=== PATIENT | male | born 1970 | race Caucasian/White ===

== ENCOUNTER → 2021-10-22 15:27 | Outpatient (BNVA) | payer MEDICARE, SELFPAY | PROVIDERS: Visit Provider Surgery | DX: Z12.11 Encounter for screening for malignant neoplasm of colon (principal) | CPT/HCPCS: 99024 ==

== ENCOUNTER 2022-01-05 05:46 | Day surgery (SDC) | payer MEDICARE, MEDICAID, SELFPAY ==
[2022-01-03 08:42] VITALS: BMI 48.7
[2022-01-05 06:20] VITALS: BP 160/112; PULSE 96; RESP 18; TEMP 36.4; O2SAT 94
[2022-01-05] MEDS: sodium chloride 0.9% 1,000 ML 30 ML IV (06:34)
--- NOTE | 2022-01-05 06:57 | ANES.PREANE2 ---
Pre-Anesthetic Assessment Height/Weight: Height 1.88 m Weight 172.365 kg Temp Pulse Resp BP Pulse Ox O2 Del Method 97.6 F 96 18 160/112 94 01/05/22 06:20 01/05/22 06:20 01/05/22 06:20 01/05/22 06:20 01/05/22 06:20 01/05/22 06:20 Preop Diagnosis: screening Operation Date: 01/05/22 07:00 Proposed Procedures p Colonoscopy 78287,Z12.11(Not Applicable) - Alvarez Tatum, DO Was Beta Alley taken within 24 hours: N/A Was Clonidine taken within 24 hours: N/A Last intake: Intake Last Liquid Date 01/04/22 Last Liquid Time 22:00 Last Solid Date 01/03/22 Last Solid Time 19:00 Social Alcohol and Tobacco Exam alert, oriented x 3, clear to auscultation bilaterally and regular rate & rhythm Airway Submandibular: within normal limits Cervical ROM: within normal limits Mallampati: Class II Dentition: full History/ROS No significant history except as noted and No significant complaints Pulmonary Exertional Dyspnea CV/HEM None reported None reported Hepatic None reported GI Gastroesophageal Reflux Disease Metabolic Diabetes Mellitus and Morbid Obesity [facility] [place] Osteoarthritis/DJD Neuropsych None reported narcolepsy Anesthetic Plan ASA status: 3 Anesthesia: Anesthesia Evaluation and MAC Risk of > 500 ml blood loss (7ml/kg in children): No Medications/Allergies Home Medications Medication Instructions Recorded Confirmed Last Taken Type armodafinil 250 mg tablet (Nuvigil) 250 mg PO DAILY 10/22/21 01/05/22 01/03/22 History dextroamphetamine-amphetamine 10 10 mg PO BID 10/22/21 01/05/22 01/05/22 History mg tablet (Adderall) dextroamphetamine-amphetamine ER 20 mg PO BID 10/22/21 01/05/22 01/05/22 History 20 mg 24hr capsule,extend release (Adderall XR) metformin 850 mg tablet 850 mg PO BID 10/22/21 01/05/22 01/03/22 History semaglutide 2 mg/dose (8 mg/3 mL) 1 mg SUBCUT .1 week 10/22/21 01/05/22 1 Week Ago History subcutaneous pen injector (Ozempic) ~12/29/21 venlafaxine 37.5 mg 37.5 mg PO DAILY 10/22/21 01/05/22 01/05/22 History tablet,extended release 24 hr Allergies Allergy/AdvReac Type Severity Reaction Status Date / Time No Known Allergies Allergy Verified 01/05/22 06:17 Current Medications Generic Name Dose Route Start Last Admin Trade Name Freq PRN Reason Stop Dose Admin Sodium Chloride 1,000 mls @ 30 mls/hr 01/05/22 06:15 01/05/22 06:34 Sodium Chloride 0.9% IV 01/06/22 06:14 30 mls/hr .Q24H JUAN Administration Data Anesthesia Cardiac Studies: No Data to Display
--- NOTE | 2022-01-05 06:59 | P.HP_ITS ---
Providers/Chief Complaint Primary Care Provider: David Madrid Chief Complaint: Need for colon cancer screening History of Present Illness Klaus Berry is a 51 year old male who presents for a screening colonoscopy. He has never had one before. Review of Systems General: Reports: 10 or more systems reviewed and unremarkable except in HPI and below Medications/Allergies Home Medications Medication Instructions Recorded Confirmed Last Taken Type armodafinil 250 mg tablet (Nuvigil) 250 mg PO DAILY 10/22/21 01/05/22 01/03/22 History dextroamphetamine-amphetamine 10 10 mg PO BID 10/22/21 01/05/22 01/05/22 History mg tablet (Adderall) dextroamphetamine-amphetamine ER 20 mg PO BID 10/22/21 01/05/22 01/05/22 History 20 mg 24hr capsule,extend release (Adderall XR) metformin 850 mg tablet 850 mg PO BID 10/22/21 01/05/22 01/03/22 History semaglutide 2 mg/dose (8 mg/3 mL) 1 mg SUBCUT .1 week 10/22/21 01/05/22 1 Week Ago History subcutaneous pen injector (Ozempic) ~12/29/21 venlafaxine 37.5 mg 37.5 mg PO DAILY 10/22/21 01/05/22 01/05/22 History tablet,extended release 24 hr Allergies Allergy/AdvReac Type Severity Reaction Status Date / Time No Known Allergies Allergy Verified 01/05/22 06:17 Vitals/I&O/Wt Last Vital Signs Temp 97.6 F 01/05/22 06:20 Pulse 96 01/05/22 06:20 Resp 18 01/05/22 06:20 BP 160/112 01/05/22 06:20 Pulse Ox 94 01/05/22 06:20 O2 Del Method 01/05/22 06:20 Weight last 48 hrs Weight 380 lb Physical Exam Narrative: General : Patient is well developed , no acute distress, oriented x3 Head : Normal cephalic, a-traumatic. Ears : Pinnae and external canal are normal. Hearing is normal. Eyes : PERRLA, Sclera and injection are normal. No conjunctival discharge. Nose : Mucous membranes are without erythema. Throat : buccal mucosa is normal, gums are without significant recession or hypertrophy. Lungs : Equal chest rise bilaterally, no use of accessory muscles, trachea is midline. Cor : Rate and rhythm are normal. Abdomen : Soft, ND, NT, no g/r/m Extremities : No edema, no cyanosis or clubbing, dorsalis pedis pulses are present bilaterally, non-tender to palpation of calves. Upper extremities are normal bilaterally. Back : non-tender to palpation, no CVA tenderness. Neuro : CN II - XII intact, Upper and lower extremities have equal and full strength A&P Assessment and plan (1) Colon cancer screening: Status: Acute Plan Colonoscopy The risks and benefits of the procedure, including bleeding, infection, intestinal perforation requiring surgery, missed lesion, or explained to the patient. He is understanding of the risks and wishes to proceed. Attestations Medical Necessity Statement*: Will go home Coding Level of Care Code Acute [employer] for [facility] Fwd Diagnoses Colon cancer screening Z12.11
[2022-01-05 07:55] VITALS: BP 106/69; PULSE 85; RESP 28; TEMP 36.2; O2SAT 93
[2022-01-05 08:10] VITALS: BP 107/75; PULSE 73; RESP 252; O2SAT 95
--- NOTE | 2022-01-05 12:11 | ANE.PACU2 ---
Inpatient post-anesthesia follow up: Airway intact: Yes Vital signs: Temperature 97.2 F Pulse Rate 73 Respiratory Rate 252 Blood Pressure 107/75 Pulse Oximetry 95 Oxygen Delivery Me thod Room Air Oxygen Flow Rate 9 Fraction of Inspir ed Oxygen Hydration adequate: Yes Nausea and vomiting: No Pain level: 1 Mental status: Baseline
== END 2022-01-05 08:34 | disposition home or self-care (01) ==
PROVIDERS: PCP Family Medicine; Visit Provider Surgery
PROC: 0DJD8ZZ Inspection of Lower Intestinal Tract, Via Natural or Artificial Opening Endoscopic (ICD-10-PCS; CPT 45378; principal; 2022-01-05 07:00)
DX: Z12.11 Encounter for screening for malignant neoplasm of colon (principal); D12.5 Benign neoplasm of sigmoid colon; E11.9 Type 2 diabetes mellitus without complications; E66.01 Morbid (severe) obesity due to excess calories; Z68.42 Body mass index [BMI] 45.0-49.9, adult; Z79.84 Long term (current) use of oral hypoglycemic drugs
CPT/HCPCS: 45385; 88305; J2704; J3490; J7030

== ENCOUNTER → 2022-01-24 11:09 | Outpatient (BNVA) | payer MEDICARE, MEDICAID, SELFPAY | PROVIDERS: PCP Family Medicine; Visit Provider Surgery | DX: Z09 Encounter for follow-up examination after completed treatment for conditions other than malignant neoplasm (principal); K63.5 Polyp of colon | CPT/HCPCS: 99212 ==

== ENCOUNTER 2022-06-22 06:32 | Day surgery (SDC) | payer MEDICARE, MEDICAID, SELFPAY ==
[2022-06-20 12:56] VITALS: BMI 44.9
[2022-06-22 07:06] VITALS: BP 120/84; PULSE 86; RESP 18; TEMP 36.6; O2SAT 98
[2022-06-22 07:24] LABS: Glucose Point of Care 130 mg/dL (70-110)
[2022-06-22] MEDS: sodium chloride 0.9% 1,000 ML 30 ML IV (07:26)
--- NOTE | 2022-06-22 07:45 | ANES.PREANE2 ---
Pre-Anesthetic Assessment Height/Weight: Height 1.88 m Weight 158.757 kg Temp Pulse Resp BP Pulse Ox O2 Del Method 97.9 F 86 18 120/84 98 06/22/22 07:06 06/22/22 07:06 06/22/22 07:06 06/22/22 07:06 06/22/22 07:06 06/22/22 07:06 Preop Diagnosis: screening Operation Date: 06/22/22 08:00 Proposed Procedures p Colonoscopy 77343,K65.5(Not Applicable) - Alvarez Tatum, DO Was Beta Alley taken within 24 hours: N/A Was Clonidine taken within 24 hours: N/A Last intake: Intake Last Liquid Date 06/21/22 Last Liquid Time 23:00 Last Solid Date 06/20/22 Last Solid Time 19:00 Social Tobacco 2 pack(s) per day last cig this morning Exam alert, oriented x 3, clear to auscultation bilaterally and regular rate & rhythm Airway Submandibular: within normal limits Cervical ROM: within normal limits Mallampati: Class I Comments: Comments: only 4 teeth on the bottom, loose, patient understands risk to dentition History/ROS No significant history except as noted and No significant complaints Pulmonary Chronic Obstructive Pulmonary Disease slight sleep apnea previously needed but states no longer CV/HEM None reported None reported Hepatic None reported GI None reported taking semiglutinide Metabolic Diabetes Mellitus and Morbid Obesity [facility] [place] None reported Neuropsych None reported Anesthetic Plan ASA status: 3 Anesthesia: Anesthesia Evaluation and MAC Risk of > 500 ml blood loss (7ml/kg in children): Yes, adequate IV access and fluids planned Medications/Allergies Home Medications Medication Instructions Recorded Confirmed Last Taken Type armodafinil 250 mg tablet (Nuvigil) 250 mg PO DAILY 10/22/21 06/20/22 06/22/22 History 250 mg dextroamphetamine-amphetamine 10 10 mg PO BID 10/22/21 06/20/22 06/22/22 History mg tablet (Adderall) 10 mg dextroamphetamine-amphetamine ER 20 mg PO BID 10/22/21 06/20/22 06/22/22 History 20 mg 24hr capsule,extend release 20 mg (Adderall XR) metformin 850 mg tablet 850 mg PO BID 10/22/21 06/20/22 06/21/22 History 850 mg semaglutide 2 mg/dose (8 mg/3 mL) 1 mg SUBCUT .1 week 10/22/21 06/20/22 06/16/22 History subcutaneous pen injector (Ozempic) 1 mg venlafaxine 37.5 mg 37.5 mg PO DAILY 10/22/21 06/20/22 06/22/22 History tablet,extended release 24 hr 37.5 mg Allergies Allergy/AdvReac Type Severity Reaction Status Date / Time No Known Allergies Allergy Verified 01/21/22 08:07 Current Medications Generic Name Dose Route Start Last Admin Trade Name Freq PRN Reason Stop Dose Admin Sodium Chloride 1,000 mls @ 30 mls/hr 06/22/22 07:00 06/22/22 07:26 Sodium Chloride 0.9% IV 06/23/22 06:59 30 mls/hr .Q24H JUAN Administration Data Anesthesia Cardiac Studies: No Data to Display
--- NOTE | 2022-06-22 08:03 | P.HP_ITS ---
Providers/Chief Complaint Primary Care Provider: David Madrid Chief Complaint: Peritonitis History of Present Illness Klaus Berry is a 52 year old male here for colonoscopy Medications/Allergies Home Medications Medication Instructions Recorded Confirmed Last Taken Type armodafinil 250 mg tablet (Nuvigil) 250 mg PO DAILY 10/22/21 06/20/22 06/22/22 History 250 mg dextroamphetamine-amphetamine 10 10 mg PO BID 10/22/21 06/20/22 06/22/22 History mg tablet (Adderall) 10 mg dextroamphetamine-amphetamine ER 20 mg PO BID 10/22/21 06/20/22 06/22/22 History 20 mg 24hr capsule,extend release 20 mg (Adderall XR) metformin 850 mg tablet 850 mg PO BID 10/22/21 06/20/22 06/21/22 History 850 mg semaglutide 2 mg/dose (8 mg/3 mL) 1 mg SUBCUT .1 week 10/22/21 06/20/22 06/16/22 History subcutaneous pen injector (Ozempic) 1 mg venlafaxine 37.5 mg 37.5 mg PO DAILY 10/22/21 06/20/22 06/22/22 History tablet,extended release 24 hr 37.5 mg Allergies Allergy/AdvReac Type Severity Reaction Status Date / Time No Known Allergies Allergy Verified 01/21/22 08:07 Vitals/I&O/Wt Last Vital Signs Temp 97.9 F 06/22/22 07:06 Pulse 86 06/22/22 07:06 Resp 18 06/22/22 07:06 BP 120/84 06/22/22 07:06 Pulse Ox 98 06/22/22 07:06 O2 Del Method 06/22/22 07:06 Weight last 48 hrs Weight 350 lb A&P Assessment and plan (1) Colon polyps: Plan Colonoscopy The risks and benefits of the procedure, including bleeding, infection, intestinal perforation requiring surgery, missed lesion were explained to the patient. The patient is understanding of the risks and wishes to proceed. Attestations Medical Necessity Statement*: Home Coding Level of Care Code Acute Code for [facility] Fwd Diagnoses Colon polyps K63.5
[2022-06-22 08:44] VITALS: BP 120/71; PULSE 84; RESP 18; TEMP 36.3; O2SAT 96
[2022-06-22 08:45] VITALS: BP 134/79; PULSE 82; RESP 20; O2SAT 94
[2022-06-22 08:56] VITALS: BP 106/76; PULSE 76; RESP 20; O2SAT 94
--- NOTE | 2022-06-22 15:46 | ANE.PACU2 ---
Inpatient post-anesthesia follow up: Airway intact: Yes Vital signs: Temperature 97.3 F Pulse Rate 76 Respiratory Rate 20 Blood Pressure 106/76 Pulse Oximetry 94 Oxygen Delivery Me thod Room Air Oxygen Flow Rate 6 Fraction of Inspir ed Oxygen Hydration adequate: Yes Nausea and vomiting: No Pain level: 2 Mental status: Baseline
== END 2022-06-22 09:15 | disposition home or self-care (01) ==
PROVIDERS: PCP Family Medicine; Visit Provider Surgery
PROC: 0DJD8ZZ Inspection of Lower Intestinal Tract, Via Natural or Artificial Opening Endoscopic (ICD-10-PCS; CPT 45378; principal; 2022-06-22 08:00)
DX: Z12.11 Encounter for screening for malignant neoplasm of colon (principal); Z86.010 Personal history of colon polyps; K57.30 Diverticulosis of large intestine without perforation or abscess without bleeding; K64.8 Other hemorrhoids; D12.2 Benign neoplasm of ascending colon; F17.210 Nicotine dependence, cigarettes, uncomplicated; J44.9 Chronic obstructive pulmonary disease, unspecified; E11.9 Type 2 diabetes mellitus without complications; E66.01 Morbid (severe) obesity due to excess calories; Z68.41 Body mass index [BMI] 40.0-44.9, adult
CPT/HCPCS: 36416; 45385; 82962; 88305; J2704; J7030